=== PATIENT | female | born 1935 | race Caucasian/White ===

== ENCOUNTER 2016-08-10 11:42 | Inpatient (IN) | payer MEDICARE, BC ==
[~2016-08-10] VITALS: Ht 165.1 cm; Wt 77.2 kg
[2016-08-10] VITALS (13 sets, daily range): BP systolic 131–158; RESP 13–17; TEMP 97.8–98.8; Ht 165.1 cm; Wt 77.2 kg
[2016-08-10] MEDS ORDERED: ASPIRIN 300 MG SUPP RECTAL ONE (12:08)
[2016-08-10] MEDS ORDERED: SODIUM CHLORIDE 0.9% 1,000 ML ONE (12:24)
[2016-08-10] MEDS ORDERED: ALTEPLASE RECOMB 100 MG ONE (12:24)
[2016-08-10] MEDS ORDERED: niCARdipine 20MG/200ML 200 ML IV ONE (13:15)
[2016-08-10] MEDS ORDERED: SALINE FLUSH 10 ML FLUSH PRN (13:15)
[2016-08-10] MEDS ORDERED: niCARdipine INJ 25 MG in SODIUM CHLORIDE 0.9% 250 ML IV SCH (13:15)
[2016-08-10] MEDS ORDERED: LABETALOL 100 MG/20 ML VIAL IV PRN (13:15)
[2016-08-10] MEDS ORDERED: ACETAMINOPHEN 325 MG TAB PO PRN (13:15)
[2016-08-10] MEDS ORDERED: GLUCAGON 1 MG VIAL IM PRN (13:15)
[2016-08-10] MEDS ORDERED: DEXTROSE 50% SYRINGE 50 ML IV PRN (13:15)
[2016-08-10] MEDS ORDERED: KCL 20 MEQ/15 ML UDC PO ONE (16:30)
[2016-08-10] MEDS: SALINE FLUSH 10 ML FLUSH SCH (19:45)
[2016-08-10] MEDS: SODIUM CHLORIDE 0.9% 1,000 ML IV SCH (19:49)
[2016-08-10] MEDS: Atorvastatin 20 MG TAB PO SCH (20:09)
[2016-08-10] MEDS: POTASSIUM CHLORIDE PREMIX 50 ML IV SCH ×3 (21:44→23:45)
[2016-08-11] VITALS (25 sets, daily range): BP systolic 120–152; RESP 11–28; TEMP 98.1–98.6
[2016-08-11] MEDS: POTASSIUM CHLORIDE PREMIX 50 ML IV SCH (00:55)
[2016-08-11] MEDS: SODIUM CHLORIDE 0.9% FLUSH BAG 500 ML IV SCH (06:00)
[2016-08-11] MEDS ORDERED: CALCIUM GLUCONATE 1,000 MG in SODIUM CHLORIDE 0.9% 100 ML IV ONE (07:40)
[2016-08-11] MEDS: SALINE FLUSH 10 ML FLUSH SCH ×2 (08:08→20:59)
[2016-08-11] MEDS: SODIUM CHLORIDE 0.9% 1,000 ML IV SCH (08:10)
[2016-08-11] MEDS: LEVOTHYROXINE 0.075 MG TAB PO SCH (10:11)
[2016-08-11] MEDS: KCL CR 20 MEQ TAB PO SCH ×2 (10:11→20:59)
[2016-08-11] MEDS: amLODIPine 2.5 MG TAB PO SCH (12:07)
[2016-08-11] MEDS ORDERED: PERPHENAZINE 2 MG PO SCH (16:00)
[2016-08-11] MEDS ORDERED: **NOTE TO NURSE XX SCH (16:08)
[2016-08-11] MEDS: ASPIRIN EC 325 MG TAB PO SCH (16:38)
[2016-08-11] MEDS: METOPROLOL TART 50 MG TAB PO SCH (20:59)
[2016-08-11] MEDS: Atorvastatin 20 MG TAB PO SCH (20:59)
[2016-08-11] MEDS ORDERED: AMITRIPTYLINE 25 MG TAB PO SCH (21:00)
[2016-08-12 00:07] VITALS: BP_SYST 135; RESP 17; TEMP 98.6
[2016-08-12 04:08] VITALS: BP_SYST 125; RESP 18; TEMP 97.6
[2016-08-12] MEDS: SODIUM CHLORIDE 0.9% FLUSH BAG 500 ML IV SCH (06:00)
[2016-08-12 07:23] VITALS: BP_SYST 121; RESP 18; TEMP 97.9
[2016-08-12] MEDS: LEVOTHYROXINE 0.075 MG TAB PO SCH (07:50)
[2016-08-12] MEDS: SALINE FLUSH 10 ML FLUSH SCH (08:45)
[2016-08-12] MEDS: amLODIPine 2.5 MG TAB PO SCH (08:45)
[2016-08-12] MEDS: ASPIRIN EC 325 MG TAB PO SCH (08:46)
[2016-08-12] MEDS: METOPROLOL TART 50 MG TAB PO SCH (08:46)
[2016-08-12] MEDS: KCL CR 20 MEQ TAB PO SCH (08:46)
[2016-08-12 10:55] VITALS: BP_SYST 138; RESP 17; TEMP 97.7
[2016-08-12 14:48] VITALS: BP_SYST 135; RESP 17; TEMP 97.6
[2016-08-12 15:20] VITALS: BP_SYST 138; RESP 17; TEMP 97.7
== END 2016-08-12 16:02 | disposition home or self-care (01) | DRG 62 ==
LOC: ENRESERVDT → CANRESERV → ENRESERVTM → ER 11:42 → ENPENDDIS 13:22 → EMR 13:22 → ICU 14:01 → EMR 14:03 → CCU 17:30 → PCU 08-12
PROVIDERS: ADMIT Internal Medicine; ATTEND Internal Medicine
DX: I63.9 Cerebral infarction, unspecified (principal); G81.90 Hemiplegia, unspecified affecting unspecified side; N18.3 Chronic kidney disease, stage 3 (moderate); I12.9 Hypertensive chronic kidney disease with stage 1 through stage 4 chronic kidney disease, or unspecified chronic kidney disease; R47.02 Dysphasia; E78.5 Hyperlipidemia, unspecified; G51.0 Bell's palsy; I25.10 Atherosclerotic heart disease of native coronary artery without angina pectoris; Z95.5 Presence of coronary angioplasty implant and graft; E03.9 Hypothyroidism, unspecified; E87.6 Hypokalemia; Z96.642 Presence of left artificial hip joint; Z79.82 Long term (current) use of aspirin
CPT/HCPCS: 36415; 70450; 70551; 71010; 80047; 80048; 80053; 80061; 80076; 81003; 82040; 82248; 82553; 82947; 83735; 84100; 84484; 85014; 85025; 85384; 85610; 85730; 93005; 93306; 93880; 94799; 96361; 96365; 99232; 99233; 99291